=== PATIENT | female | born 1980 | race African-American/Black ===

== ENCOUNTER 2016-12-18 21:43 | Emergency (ER) | payer MEDICAID ==
[~2016-12-18 21:43] MED LIST: ACETAMINOPHEN; ALBUTEROL17 GM INH; AMOXIL500 M1 PO; AMPICILLIN PO; AZITHROMYCIN250 MG PO; BENTYL20 MG PO; BROMFED DM COU118 ML PO; IBUPROFEN800 MG PO; IMODIUM2 MG PO; MEDROL DOSEPAK4 MG PO; METROGEL-VAGINA70 GM VG; NO MEDICATIONS; PHENERGAN25 M1 DOB; PHENERGAN25 M1 PO; PRENATAL1 TA1 PO; SALINE NOSE SPR45 M1 NS; ZITHROMAX1 G/PKT PO; ZOFRAN ODT4 MG PO; ZOFRAN PO; ZYRTEC PO; ZYRTEC10 M2 PO
== END 2016-12-18 22:03 | disposition left against medical advice (07) ==
LOC: CED 21:43
DX: Z53.21 Procedure and treatment not carried out due to patient leaving prior to being seen by health care provider (principal)

== ENCOUNTER 2017-04-10 23:48 | Emergency (ER) | payer MEDICAID ==
[~2017-04-10] VITALS: Ht 175.3 cm; Wt 127.0 kg
== END 2017-04-11 00:12 | disposition left against medical advice (07) ==
LOC: CED 23:48
DX: Z53.21 Procedure and treatment not carried out due to patient leaving prior to being seen by health care provider (principal)
CPT/HCPCS: J0780; J1200; J1885

== ENCOUNTER 2017-04-11 09:39 | Emergency (ER) | payer MEDICAID ==
[~2017-04-11] VITALS: Ht 175.3 cm; Wt 127.0 kg
--- NOTE | ~2017-04-11 | CT71 ---
[facility] A Service of [facility] RADIOLOGY TEXT RESULTS PATIENT: DAYANA FOWLER LOCATION: [facility] : 76 UNIT #: [id number] AGE: [address]: Rony Lyon MD SEX: F ORDER DR: [id number] [facility] [address] [place], [place] [address] [id number] E MR#: [id number] Acc #: [id number] NAME: DAYANA FOWLER : 1980 SEX: F STUDY DATE/TIME: 04/11/2017 11:25 UNIT: [facility] ROOM: STUDY DESCRIPTION: CT Head Wo Contrast Attending Physician: Rony Lyon M.D. Ordering Physician: Rony Lyon M.D. Primary Care Physician: Jus Madison M.D. MEDICAL IMAGING REPORT This report is preliminary unless electronic signature is present EXAM CT head with IV contrast COMPARISON STUDIES None. INDICATIONS 36-year-old female with headache, dizziness and blurred vision for [address] exam was performed with one or more of the following radiation dose reduction techniques: automatic exposure control, adjustment of mA and/or kV according to patient size, and iterative reconstruction. FINDINGS Visualized mastoid air cells, middle ears and paranasal sinuses are well-aerated. No acute fractures or suspicious osseous lesions. Normal cerebral volume. No mass effect or abnormal extraaxial fluid collection. No acute intracranial hemorrhage or evidence of acute ischemia. IMPRESSION Normal head CT. Dictated by... Hipolito Cohen M.D. THIS IS AN ELECTRONICALLY VERIFIED REPORT Hipolito Cohen M.D. at 04/18/2017 4:57 PM BLM/pcl TD: 04/11/2017 15:45 [facility] A Service [facility] RADIOLOGY TEXT RESULTS PATIENT: DAYANA FOWLER LOCATION: [facility] : 76 UNIT #: [id number] AGE: [address]: Rony Lyon MD SEX: F ORDER DR: JOB #: [id number] MEDICAL IMAGING REPORT Page 1 of 1 COPY
== END 2017-04-11 12:33 | disposition home or self-care (01) ==
LOC: CED 09:39
DX: R51 Headache (principal); I10 Essential (primary) hypertension
CPT/HCPCS: 36415; 70450; 96374; 96375; 99284